=== PATIENT | female | born 1985 | race Caucasian/White ===

== ENCOUNTER 2022-02-23 19:36 | Emergency (ER) | payer OTHER ==
[~2022-02-23] VITALS: Ht 167.7 cm; Wt 114.0 kg
[2022-02-23] MEDS ORDERED: FAMOTIDINE 20MG/2ML IV (PEPCID) IV STA (20:02)
[2022-02-23 20:09] LABS: BASOPHILS # (AUTO) 0.1 10^3/uL (0.0-0.1); BASOPHILS % (AUTO) 0 % (0-10); EOSINOPHILS # (AUTO) 0.2 10^3/uL (0.0-0.3); EOSINOPHILS % (AUTO) 1 % (0-10); HEMATOCRIT 45 % (35-52); HEMOGLOBIN 15.4 g/dL (11.5-16.0); LYMPHOCYTES # (AUTO) 3.5 10^3/uL (1.0-4.0); LYMPHOCYTES % (AUTO) 27 % (12-44); MEAN CORPUSCULAR HEMOGLOBIN 30 pg (25-34); MEAN CORPUSCULAR HGB CONC 34 g/dL (32-36); MEAN CORPUSCULAR VOLUME 86 fL (80-99); MEAN PLATELET VOLUME 10.6 fL (9.0-12.2); MONOCYTES # (AUTO) 0.9 10^3/uL (0.0-1.0); MONOCYTES % (AUTO) 7 % (0-12); NEUTROPHILS # (AUTO) 8.2 10^3/uL (1.8-7.8); NEUTROPHILS % (AUTO) 64 % (42-75); PLATELET COUNT 283 10^3/uL (130-400); WHITE BLOOD COUNT 12.8 10^3/uL (4.3-11.0)
--- NOTE | 2022-02-23 20:09 | ED Abdominal Pain ---
General Chief Complaint: Abdominal/GI Problems Stated Complaint: ABD PAIN L SIDE,VOMITTING Nursing Triage Note: Pt c/o upper abd pain with n/v that becomes worse after eating. Pt denies urinary symptoms but reports an increase in BM's. History of Present Illness Date Seen by Provider: February 23, 2022 Time Seen by Provider: 19:44 Initial Comments 36-year-old female with no pertinent PMH is here with complaints of left upper quadrant abdominal pain which has been going on for about 3 weeks. The pain has been progressively worsening, and has become constant today. Patient's last meal was at lunchtime where she had a zucchini for lunch. Patient has associated nausea. Denies fever, diarrhea, shortness of breath, chest pain, vomiting, dysuria or hematuria. Patient has been having increased heartburn and bloating and gas over the past couple of weeks as well. Allergies and Home Medications Allergies Coded Allergies: No Known Drug Allergies (Unverified , 02/23/22) Patient Home Medication List Home Medication List Reviewed: Yes Review of Systems Review of Systems Constitutional: no symptoms reported EENTM: No Symptoms Reported Respiratory: No Symptoms Reported Cardiovascular: No Symptoms Reported Gastrointestinal: Abdomen Distended, Abdominal Pain, Nausea Genitourinary: No Symptoms Reported Musculoskeletal: no symptoms reported Skin: no symptoms reported Psychiatric/Neurological: No Symptoms Reported Endocrine: No Symptoms Reported Hematologic/Lymphatic: No Symptoms Reported Past Ukspajl-Qwbaso-Cpvkie Hx Patient Social History Tobacco Use?: Yes Tobacco type used: Cigarettes Smoking Status: Current Everyday Smoker Use of E-Cig and/or Vaping dev: No Substance use?: No Alcohol Use?: No Pt feels they are or have been: No Immunizations Up To Date Influenza Vaccine Up-to-Date: Yes; Up-to-Date First/Initial COVID19 Vaccinat: Pfizer Physical Exam Vital Signs Vital Signs - First Documented 02/23/22 19:40 Temp 36.9 Pulse 113 Resp 18 B/P (MAP) 162/101 (121) Pulse Ox 98 O2 Delivery Room Air Capillary Refill : Less Than 3 Seconds Height/Weight/BMI Height: '" Weight: lbs. oz. kg; 40.00 BMI Method: General Appearance: no apparent distress HEENT: PERRL/EOMI Neck: full range of motion Respiratory: chest non-tender, lungs clear Cardiovascular: regular rate, rhythm, no edema Gastrointestinal: normal bowel sounds, soft, no organomegaly, tenderness (LUQ and epigastric area) Extremities: normal range of motion Back: no CVA tenderness Neurologic/Psychiatric: alert, normal mood/affect, oriented x 3 Skin: normal color Focused Exam Lactate Level 02/23/22 20:50: Lactic Acid Level 1.01 Lactic Acid Level Laboratory Tests Test 02/23/22 20:50 Lactic Acid Level 1.01 MMOL/L (0.50-2.00) Progress/Results/Core Measures Results/Orders Lab Results Laboratory Tests Test 02/23/22 19:43 02/23/22 19:48 02/23/22 20:50 Range/Units Urine Color YELLOW Urine Clarity SL CLOUDY Urine pH 6.0 5-9 Urine Specific [place] >=1.030 1.016-1.022 Urine Protein NEGATIVE NEGATIVE Urine Glucose (UA) NEGATIVE NEGATIVE Urine Ketones NEGATIVE NEGATIVE Urine Nitrite NEGATIVE NEGATIVE Urine Bilirubin NEGATIVE NEGATIVE Urine Urobilinogen 0.2 < = 1.0 MG/DL Urine Leukocyte Esterase NEGATIVE NEGATIVE Urine RBC (Auto) NEGATIVE NEGATIVE Urine RBC NONE /HPF Urine WBC RARE /HPF Urine Squamous Epithelial Cells 2-5 /HPF Urine Crystals PRESENT H /LPF Urine Calcium Oxalate Crystals FEW H /LPF Urine Bacteria FEW H /HPF Urine Casts PRESENT /LPF Urine Hyaline Casts 2-5 H /LPF Urine Mucus MODERATE H /LPF Urine Other CLUE CELLS NOTED /HPF Urine Culture Indicated NO Urine Test NEGATIVE NEGATIVE Urine Opiates Screen NEGATIVE NEGATIVE Urine Oxycodone Screen NEGATIVE NEGATIVE Urine Methadone Screen NEGATIVE NEGATIVE Urine Propoxyphene Screen NEGATIVE NEGATIVE Urine Barbiturates Screen NEGATIVE NEGATIVE Ur Tricyclic Antidepressants Screen NEGATIVE NEGATIVE Urine Phencyclidine Screen NEGATIVE NEGATIVE Urine Amphetamines Screen NEGATIVE NEGATIVE Urine Methamphetamines Screen NEGATIVE NEGATIVE Urine Benzodiazepines Screen NEGATIVE NEGATIVE Urine Cocaine Screen NEGATIVE NEGATIVE Urine Cannabinoids Screen NEGATIVE NEGATIVE White Blood Count 12.8 H 4.3-11.0 10^3/uL Red Blood Count 5.20 H 3.80-5.11 10^6/uL Hemoglobin 15.4 11.5-16.0 g/dL Hematocrit 45 35-52 % Mean Corpuscular Volume 86 80-99 fL Mean Corpuscular Hemoglobin 30 25-34 pg Mean Corpuscular Hemoglobin Concent 34 32-36 g/dL Red Cell Distribution Width 12.9 10.0-14.5 % Platelet Count 283 130-400 10^3/uL Mean Platelet Volume 10.6 9.0-12.2 fL Immature Granulocyte % (Auto) 0 % Neutrophils (%) (Auto) 64 42-75 % Lymphocytes (%) (Auto) 27 12-44 % Monocytes (%) (Auto) 7 0-12 % Eosinophils (%) (Auto) 1 0-10 % Basophils (%) (Auto) 0 0-10 % Neutrophils # (Auto) 8.2 H 1.8-7.8 10^3/uL Lymphocytes # (Auto) 3.5 1.0-4.0 10^3/uL Monocytes # (Auto) 0.9 0.0-1.0 10^3/uL Eosinophils # (Auto) 0.2 0.0-0.3 10^3/uL Basophils # (Auto) 0.1 0.0-0.1 10^3/uL Immature Granulocyte # (Auto) 0.1 0.0-0.1 10^3/uL Sodium Level 141 135-145 MMOL/L Potassium Level 4.0 3.6-5.0 MMOL/L Chloride Level 103 98-107 MMOL/L Carbon Dioxide Level 21 21-32 MMOL/L Anion Gap 17 H 5-14 MMOL/L Blood Urea Nitrogen 17 7-18 MG/DL Creatinine 1.07 0.60-1.30 MG/DL Estimat Glomerular Filtration Rate 68 BUN/Creatinine Ratio 16 Glucose Level 121 H 70-105 MG/DL Calcium Level 10.3 H 8.5-10.1 MG/DL Corrected Calcium 8.5-10.1 MG/DL Total Bilirubin 0.3 0.1-1.0 MG/DL Aspartate Amino Transf (AST/SGOT) 24 5-34 U/L Alanine Aminotransferase (ALT/SGPT) 40 0-55 U/L Alkaline Phosphatase 79 40-136 U/L Troponin I < 0.30 <0.30 NG/ML Total Protein 8.4 H 6.4-8.2 GM/DL Albumin 4.7 H 3.2-4.5 GM/DL Lipase 62 8-78 U/L Lactic Acid Level 1.01 0.50-2.00 MMOL/L My Orders Orders - FATIMAH SHEETS MD Comprehensive Metabolic Panel (02/23/22 20:01) Lipase (02/23/22 20:01) Ua Culture If Indicated (02/23/22 20:01) Ed Iv/Invasive Line Start (02/23/22 20:01) Cbc With Automated Diff (02/23/22 20:01) Ct Abdomen/Pelvis W (02/23/22 20:01) Drug Screen Stat (Urine) (02/23/22 20:02) Hcg,Qualitative Urine (02/23/22 20:02) Troponin I Fs (02/23/22 20:02) Ondansetron Injection (Zofran Injectio (02/23/22 20:15) Famotidine Injection (Pepcid Injection) (02/23/22 20:02) Ed Iv/Invasive Line Start (02/23/22 20:03) Ns Iv 1000 Ml (Sodium Chloride 0.9%) (02/23/22 20:15) Iohexol Injection (Omnipaque 350 Mg/Ml 1 (02/23/22 20:30) Di Iv Start (Assessment) .IV start (02/23/22 20:23) Sodium Chloride Flush (Catheter Flush Sy (02/23/22 20:30) Ns (Ivpb) (Sodium Chloride 0.9% Ivpb Bag (02/23/22 20:30) Lactic Acid Analyzer (02/23/22 20:47) Medications Given in ED Current Medications Medications Dose Ordered Sig/Stacy Route Start Time Stop Time Status Last Admin Dose Admin Iohexol 100 ml ONCE ONCE IV 02/23/22 20:30 02/23/22 20:31 DC 02/23/22 20:36 100 ML Ondansetron HCl 4 mg ONCE ONCE IVP 02/23/22 20:15 02/23/22 20:16 DC 02/23/22 20:07 4 MG Sodium Chloride 10 ml NEEDED PRN IV 02/23/22 20:30 02/23/22 20:36 10 ML Sodium Chloride 100 ml ONCE ONCE IV 02/23/22 20:30 02/23/22 20:31 DC 02/23/22 20:36 100 ML Vital Signs/I&O 02/23/22 19:40 Temp 36.9 Pulse 113 Resp 18 B/P (MAP) 162/101 (121) Pulse Ox 98 O2 Delivery Room Air Blood Pressure Mean: 121 Progress Progress Note : Progress Note 1. LUQ / EPIGASTRIC PAIN: GERD: IRRITABLE BOWEL SYNDROME - CT ABD & PELVIS: Normal - Labs: unremarkable - UA/ UDS: negative - NS IVF bolus STAT - Pepcid 20mg iv / Zofran 4mg iv STAT - Medications seem to relive the pain - On further questioning, pt states she has been having alternating diarrhea and constipation over the past few months. Miguelito has IBS, recommended pt to keep food journal to see what triggers the pain and diarrhea. - Will give prescription for Pepcid and Zofran - F/u with PCP in 3 to 7 days -The patient was seen in the ED, and treated appropriately to presentation at a specific point in time. Patient is informed that there is a possibility that disease and illness can evolve and change in acuity rapidly or slowly after patient is discharged from the ER. Precautionary advice given to the patient for immediate return to ER if symptoms worsen or do not resolve, and to seek emergency care sooner rather than later. Pt also advised on the importance of PCP follow up and compliance with management and follow up plan with PCP and/or specialist, as this is part of the management plan. Pt verbally expressed understanding. Diagnostic Imaging Diagonstic Imaging: CT Plain Films/CT/US/NM/MRI: abdomen Comments [facility]. [place], [place] NAME: CARLENE HOLT [facility] REC#: [id number] PT STATUS: REG ER : 1985 PHYSICIAN: FATIMAH SHEETS MD ADMIT DATE: 02/23/22/ER FS Draft Date of Exam:02/23/22 CT ABDOMEN/PELVIS W PROCEDURE: CT abdomen and pelvis with contrast. TECHNIQUE: Multiple contiguous axial images were obtained through the abdomen and pelvis after administration of intravenous contrast. Auto Exposure Controls were utilized during the CT exam to meet ALARA standards for radiation dose reduction. All CT scans use one or more of the following dose optimizing techniques: automated exposure control, MA and/or KvP adjustment based on patient size and exam type or iterative reconstruction. DATE: February 23, 2022. COMPARISON: None. INDICATION: 36-year-old female, left upper quadrant abdominal pain. FINDINGS: There is minimal dependent atelectasis in the left lower lobe. The heart is not enlarged. There is no pericardial effusion. The liver is unremarkable in size and contour. There is no identified liver lesion. The main, right and left portal veins are patent. The gallbladder is unremarkable. There is no intrahepatic or extrahepatic bile duct dilation. The main pancreatic duct is not abnormally dilated. Unremarkable appearance of the pancreatic parenchyma. The spleen is normal in size. The adrenal glands are unremarkable. Unremarkable appearance of the renal parenchyma. The urinary collecting systems are not distended. There is no identified renal or ureteral stone. The urinary bladder is unremarkable. The uterus is not seen and may be surgically absent. The intestinal tract is not distended. The appendix is unremarkable. There is no free intraperitoneal air. There is no drainable fluid collection. There is no free pelvic fluid. There is no identified abnormally enlarged lymph node in the abdomen or pelvis which meets CT size criteria for adenopathy. There is no identified acute bony abnormality. There are degenerative changes of the spine. IMPRESSION: CT abdomen and pelvis: 1. No identified acute abnormality in the abdomen or pelvis. Dictated on workstation # [id number] Dict: 02/23/222050 Trans: 02/23/222055 [facility] [id number] Interpreted by: JULIO CESAR NANCE MD Electronically signed by: Departure Impression Primary Impression: GERD (gastroesophageal reflux disease) Additional Impression: Irritable bowel syndrome (IBS) Disposition: 01 HOME, SELF-CARE Condition: Improved Departure-Patient Inst. Referrals: CLARENCE DANIELS CRNA (PCP/Family) Primary Care Physician Patient Instructions: IBS Diet, Irritable Bowel Syndrome (DC), Acid Reflux and GERD in Adults (DC) Add. Discharge Instructions: - Miguelito has IBS, recommended pt to keep food journal to see what triggers the pain and diarrhea. - prescription for Pepcid and Zofran - F/u with PCP in 3 to 7 days -The patient was seen in the ED, and treated appropriately to presentation at a specific point in time. Patient is informed that there is a possibility that disease and illness can evolve and change in acuity rapidly or slowly after patient is discharged from the ER. Precautionary advice given to the patient for immediate return to ER if symptoms worsen or do not resolve, and to seek emergency care sooner rather than later. Pt also advised on the importance of PCP follow up and compliance with management and follow up plan with PCP and/or specialist, as this is part of the management plan. Pt verbally expressed understanding. All discharge instructions reviewed with patient and/or family. Voiced understanding. Scripts Famotidine (Pepcid) 20 Mg Tablet 20 MG PO BID for 14 Days, #28 TAB Prov: FATIMAH SHEETS MD 02/23/22 Ondansetron (Ondansetron Odt) 4 Mg Tab.rapdis 4 MG PO Q4H for Nausea/Vomiting for 5 Days, #20 TAB Prov: FATIMAH SHEETS MD 02/23/22 FATIMAH SHEETS MD February 23, 2022 20:09
[2022-02-23] MEDS ORDERED: NS IV 1000 ML 1,000 ML IV SCH (20:15)
[2022-02-23] MEDS ORDERED: ONDANSETRON 4 MG/2 ML (SDV) Z0FRAN IVP ONE (20:15)
[2022-02-23 20:18] LABS: BILIRUBIN,URINE NEGATIVE (NEGATIVE); CLARITY,URINE SL CLOUDY; COLOR,URINE YELLOW; GLUCOSE, URINE (UA) NEGATIVE (NEGATIVE); KETONES,URINE NEGATIVE (NEGATIVE); LEUKOCYTE ESTERASE ,URINE NEGATIVE (NEGATIVE); NITRITE,URINE NEGATIVE (NEGATIVE); PROTEIN,URINE NEGATIVE (NEGATIVE)
[2022-02-23 20:21] LABS: HCG,QUALITATIVE URINE NEGATIVE (NEGATIVE)
[2022-02-23 20:30] LABS: AMPHETAMINE SCREEN, URINE NEGATIVE (NEGATIVE); BARBITURATE SCREEN URINE NEGATIVE (NEGATIVE); BENZODIAZEPINES SCREEN URINE NEGATIVE (NEGATIVE); CANNABINOID SCREEN, URINE NEGATIVE (NEGATIVE); COCAINE SCREEN URINE NEGATIVE (NEGATIVE); METHADONE STAT NEGATIVE (NEGATIVE); OPIATE SCREEN URINE NEGATIVE (NEGATIVE); OXYCODONE STAT NEGATIVE (NEGATIVE); PROPOXYPHENE STAT NEGATIVE (NEGATIVE); TRICYCLIC ANTIDEPRESSANTS SCRE NEGATIVE (NEGATIVE)
[2022-02-23] MEDS ORDERED: NS 100 ML (IVPB) BAG IV ONE (20:30)
[2022-02-23] MEDS ORDERED: CATHETER FLUSH 10 ML SYR IV PRN (20:30)
[2022-02-23] MEDS ORDERED: IOHEXOL 350 MG/ML 100 ML (OMNIPAQUE 350) VIAL IV ONE (20:30)
[2022-02-23 20:32] LABS: BACTERIA,URINE FEW /HPF; CALCIUM OXALATE CRYSTALS,UR FEW /LPF; URINE OTHER CLUE CELLS NOTED /HPF; WBC,URINE RARE /HPF
[2022-02-23 20:42] LABS: ALANINE AMINOTRANSFERASE 40 U/L (0-55); ALKALINE PHOSPHATASE 79 U/L (40-136); BILIRUBIN,TOTAL 0.3 MG/DL (0.1-1.0); BUN/CREATININE RATIO 16; CALCIUM 10.3 MG/DL (8.5-10.1); CARBON DIOXIDE 21 MMOL/L (21-32); CHLORIDE 103 MMOL/L (98-107); CREATININE SERUM 1.07 MG/DL (0.60-1.30); GFR ESTIMATED 68; GLUCOSE 121 MG/DL (70-105); SODIUM 141 MMOL/L (135-145)
[2022-02-23 20:43] LABS: ALBUMIN 4.7 GM/DL (3.2-4.5); LIPASE 62 U/L (8-78); TOTAL PROTEIN 8.4 GM/DL (6.4-8.2)
--- NOTE | 2022-02-23 20:56 | Diagnostic Imaging Report ---
PROCEDURE: CT abdomen and pelvis with contrast. TECHNIQUE: Multiple contiguous axial images were obtained through the abdomen and pelvis after administration of intravenous contrast. Auto Exposure Controls were utilized during the CT exam to meet ALARA standards for radiation dose reduction. All CT scans use one or more of the following dose optimizing techniques: automated exposure control, MA and/or KvP adjustment based on patient size and exam type or iterative reconstruction. DATE: February 23, 2022. COMPARISON: None. INDICATION: 36-year-old female, left upper quadrant abdominal pain. FINDINGS: There is minimal dependent atelectasis in the left lower lobe. The heart is not enlarged. There is no pericardial effusion. The liver is unremarkable in size and contour. There is no identified liver lesion. The main, right and left portal veins are patent. The gallbladder is unremarkable. There is no intrahepatic or extrahepatic bile duct dilation. The main pancreatic duct is not abnormally dilated. Unremarkable appearance of the pancreatic parenchyma. The spleen is normal in size. The adrenal glands are unremarkable. Unremarkable appearance of the renal parenchyma. The urinary collecting systems are not distended. There is no identified renal or ureteral stone. The urinary bladder is unremarkable. The uterus is not seen and may be surgically absent. The intestinal tract is not distended. The appendix is unremarkable. There is no free intraperitoneal air. There is no drainable fluid collection. There is no free pelvic fluid. There is no identified abnormally enlarged lymph node in the abdomen or pelvis which meets CT size criteria for adenopathy. There is no identified acute bony abnormality. There are degenerative changes of the spine. IMPRESSION: CT abdomen and pelvis: 1. No identified acute abnormality in the abdomen or pelvis. Dictated by: Dictated on workstation # [id number]
[2022-02-23] MEDS ORDERED: ONDA4TAB11 PO (21:34)
[2022-02-23] MEDS ORDERED: FAMO-119 PO (21:34)
[2022-02-23 21:43] VITALS: BP 138/98
== END 2022-02-23 21:43 | disposition home or self-care (01) ==
LOC: ER FS 19:40
DX: K21.9 Gastro-esophageal reflux disease without esophagitis (principal); K58.9 Irritable bowel syndrome, unspecified; F17.210 Nicotine dependence, cigarettes, uncomplicated; Z28.311 Partially vaccinated for COVID-19
CPT/HCPCS: 36415; 74177; 80053; 80306; 81000; 83605; 83690; 84484; 84703; 85025